=== PATIENT | male | born 1995 | race African-American/Black ===

== ENCOUNTER 2023-04-01 19:51 | Emergency (ER) | payer OTHER ==
[~2023-04-01] VITALS: Ht 175.3 cm; Wt 70.5 kg
[2023-04-01 21:47] LABS: CHLAMYDIA DNA AMPLIFICATION POSITIVE (NEGATIVE); GC DNA AMPLIFICATION NEGATIVE (NEGATIVE)
[2023-04-01] MEDS ORDERED: DOXYCYCLINE HYCLATE 100MG TABLET PO ONE (22:35)
[2023-04-01] MEDS ORDERED: DOXY-443 PO (22:55)
[2023-04-01 22:57] VITALS: BP 142/89; TEMP 98; O2SAT 99
== END 2023-04-01 22:59 | disposition home or self-care (01) ==
LOC: M ED 19:51
DX: A74.9 Chlamydial infection, unspecified (principal)

== ENCOUNTER 2024-01-09 00:48 | Emergency (ER) | payer OTHER ==
[~2024-01-09] VITALS: Ht 177.8 cm; Wt 70.4 kg
[~2024-01-09 00:48] MED LIST: DOXY-441 PO
[2024-01-09 06:06] VITALS: BP 137/81; TEMP 98.2; O2SAT 100
== END 2024-01-09 06:41 | disposition home or self-care (01) ==
LOC: M ED 00:48
DX: S61.112A Laceration without foreign body of left thumb with damage to nail, initial encounter (principal); Y92.019 Unspecified place in single-family (private) house as the place of occurrence of the external cause; Y93.9 Activity, unspecified; Y99.9 Unspecified external cause status; Z79.2 Long term (current) use of antibiotics